=== PATIENT | female | born 1970 | race Caucasian/White ===

== ENCOUNTER 2016-07-05 08:10 | Emergency (ER) | payer OTHER ==
[2016-07-05] MEDS ORDERED: predniSONE TAB* 20 MG PO ONE (09:17)
[2016-07-05] MEDS ORDERED: Famotidine TAB* 20 MG PO ONE (09:18)
[2016-07-05] MEDS ORDERED: LoraTADine TAB(NF) 10 MG TAB (AUTOSUB to CETIRIZINE) PO ONE (09:18)
[2016-07-05 09:31] VITALS: BP 121/61
--- NOTE | 2016-07-05 10:05 | UC ---
Adrianna Gonzalez Michael, scribed for Emily Lerner MD on 07/05/16 at 0830 . Skin Complaint HPI - HPI Summary HPI Summary: 46 y/o female comes to [facility] presenting with swollen right lower lip that started this morning when she woke up. The pt reports that the swelling is radiating to her right lower jaw. She also states that the swelling is aggravated with talking. The pt denies chest tightness, throat tightening, wheezing, SOB, and dysphagia. The pt notes she took Ibuprofen for plantar fasciitis at 1600 one day ago. She also started Garcinia Cambogia BID 2 weeks ago. - History of Current Complaint Chief Complaint: UCSkin Stated Complaint: LIP SWELLING Hx Obtained From: Patient, Medical Records Hx Last Menstrual Period: 06/20/16 Onset/Duration: Sudden Onset, Lasting Hours, Still Present Skin Exposure Onset/Duration: Hours Ago Timing: Constant Onset Severity: Moderate Current Severity: Moderate Pain Intensity: 0 Pain Scale Used: 0-10 Numeric Location: Other - right lower lip Character: Swelling Aggravating: Other - talking Alleviating: Nothing Associated Signs & Symptoms: Positive: Negative - chest tightness. SOB.. Negative: Wheezing, Chest Pain, Hoarseness, Throat Tightening - no dysphagia - Allergy/Home Medications Allergies/Adverse Reactions: Allergies Allergy/AdvReac Type Severity Reaction Status Date / Time No Known Allergies Allergy Verified 07/05/16 08:23 Review of Systems Skin: Other - right lower lip swelling ENT: Negative - throat tightening. dysphagia. Respiratory: Negative - SOB. wheezing. Cardiovascular: Negative - CP All Other Systems Reviewed And Are Negative: Yes PMH/Surg Hx/FS Hx/Imm Hx Previously Healthy: No - plantar fasciitis - Surgical History Surgical History: None - Family History Known Family History: Positive: Cardiac Disease, Other - throat CA. CVA. Family History: pt denies a significant FHx - Social History Occupation: Employed Full-time Lives: With Family Alcohol Use: Occasionally Substance Use Type: None Smoking Status (MU): Never Smoked Tobacco Physical Exam Triage Information Reviewed: Yes Vital Signs: Initial Vital Signs Temp 98.5 F 07/05/16 08:14 Pulse 91 07/05/16 08:14 Resp 16 07/05/16 08:14 BP 137/66 07/05/16 08:14 Pulse Ox 100 07/05/16 08:14 Vital Signs Reviewed: Yes - Additional Comments Appearance: Well-appearing, no pain distress, Well-nourished Eyes: Conjunctiva clear ENT: No uvula edema. Pharynx is not inflamed. Right lower lip swollen to the point there are no lip creases. No mucosal ulceration. No anterior cervical adenopathy. Neck: Supple Respiratory: Lungs clear, Normal breath sounds, no respiratory distress Cardio: RRR, No murmur, pulses normal, brisk capillary refill Musculoskeletal: Strength Intact, ROM intact Neuro: Alert, muscle tone normal Psychological: Normal Skin: Normal No rash or hives. Course/Dx - Course Course Of Treatment: Discussed with patient the development of allergies and the possibility that she developed an allergy to Ibuprofen. Discussed anaphylaxis and indications for going to the ED if sxs worsen. Explained that at this time sxs are all localized - Differential Diagnoses - Skin Complaint Differential Diagnoses: Allergic Reaction, Anaphylaxis, Angioedema - Diagnoses Provider Diagnoses: acute lip swelling, localized allergic reaction Discharge - Discharge Plan Condition: Stable Disposition: HOME Prescriptions: Famotidine TAB* [Pepcid TAB*] 40 mg PO DAILY #8 tab predniSONE TAB* [Deltasone TAB*] 40 mg PO DAILY #8 tab Patient Education Materials: General Allergic Reaction (ED) Referrals: No Primary Care Phys,NOPCP [Primary Care Provider] - Additional Instructions: KEEP YOUR SCHEDULED APPOINTMENT WITH YOUR NEW PRIMARY CARE PROVIDER AT [facility]. START YOUR PRESCRIBED MEDICINES TOMORROW, WE GAVE YOUR FIRST DOSES TODAY AT 0930AM. START BENADRYL 50MG EVERY 6 HRS AROUND THE CLOCK FOR THE NEXT 48 HRS, AND THEN NEEDED FOR THE LIP SWELLING. DO NOT TAKE IBUPROFEN OR GARCINIA CAMBOGIA AGAIN YOU MAY BE ALLERGIC TO THEM. DISCUSS THIS WITH YOUR DOCTOR BEFORE YOU TAKE THEM AGAIN. GO TO THE EMERGENCY ROOM IF ANY NEW OR WORSENING SYMPTOMS. The documentation as recorded by the Adrianna gonzalez Michael accurately reflects the service I personally performed and the decisions made by , Emily Lerner MD.
== END 2016-07-05 09:36 | disposition home or self-care (01) ==
LOC: UCEAST 08:10
DX: T78.40XA Allergy, unspecified, initial encounter (principal); X58.XXXA Exposure to other specified factors, initial encounter; R22.0 Localized swelling, mass and lump, head
CPT/HCPCS: 99212; A9270-GY; G0463; J7512

== ENCOUNTER 2016-08-04 17:34 | Emergency (ER) | payer OTHER ==
[2016-08-04 18:30] LABS: Hematocrit 40 % (35-47); Hemoglobin 13.5 g/dl (12.0-16.0); Mean Corpuscular HGB Conc 34 g/dl (31-36); Mean Corpuscular Hemoglobin 33 pg (27-31); Mean Corpuscular Volume 96 fL (80-97); Mean Platelet Volume 9 um3 (7.4-10.4); Red Blood Count 4.14 10^6/ul (4.0-5.4); Red Cell Distribution Width 12 % (10.5-15); White Blood Count 6.7 10^3/ul (3.5-10.8)
[2016-08-04 18:42] LABS: Urine Bilirubin Negative (Negative); Urine Glucose Negative (Negative); Urine Nitrite Negative (Negative)
[2016-08-04 18:47] LABS: BUN/Creatinine Ratio 12.2 (8-20); C Reactive Protein 55.53 mg/L (< 5.00); Calcium 9.4 mg/dL (8.6-10.3); EGFR African American 79.3 (>60); EGFR Non-African American 61.7 (>60); Globulin 2.8 g/dL (2-4); Magnesium 1.7 mg/dL (1.9-2.7); Potassium 3.7 mmol/L (3.5-5.0); Total Bilirubin 0.6 mg/dL (0.2-1.0); Total Protein 6.8 g/dL (6.4-8.9)
--- NOTE | 2016-08-04 19:03 | ED ---
Abdominal Pain/Female - HPI Summary HPI Summary: Patient presents to the ED with recommendation of PCP d/t diffuse abdominal pain intermittently since yesterday. Denies N/V. Patient has been recently constipated over the past several months to which she takes supplements. If she dose not take the supplements, she tends to not have BM for 3 days. Past surgical hx includes appendectomy. She also has a known fibroid tumor, but unsure of location. She notes to some GB issues including intermittent RUQ pain radiating to shoulder x several months. This pain she states is different and diffuse. Denies fever, PAGAN, back pain, urinary symptoms. She states lately she has struggled with losing weight and is beginning to see specialists for answers. Nothing makes the pain better or worse. - History of Current Complaint Chief Complaint: EDAbdPain Stated Complaint: ABD PIFELICIA Time Seen by Provider: 08/04/16 17:42 Hx Obtained From: Patient Hx Last Menstrual Period: 06/20/16 ?: No Onset/Duration: Sudden Onset Timing: Minutes Severity Initially: Moderate Severity Currently: Moderate Pain Intensity: 3 Pain Scale Used: 0-10 Numeric Location: Diffuse Radiates: No Character: Cramping Aggravating Factor(s): Nothing Alleviating Factor(s): Nothing Associated Signs and Symptoms: Positive: Negative - Risk Factors Ectopic Risk Factor: Maternal Age ^ 30 Ovarian Torsion Risk Factor: Reproductive Age, Ovarian Cysts/Tumors - fibroid tumor Allergies/Adverse Reactions: Allergies Allergy/AdvReac Type Severity Reaction Status Date / Time No Known Allergies Allergy Verified 07/05/16 08:23 PMH/Surg Hx/FS Hx/Imm Hx Previously Healthy: Yes Infectious Disease History: No Infectious Disease History: Denies: Traveled Outside the [place] in Last 30 Days - Family History Known Family History: Positive: Cardiac Disease, Other - throat CA. CVA. Family History: pt denies a significant FHx - Social History Occupation: Employed Full-time Lives: With Family Alcohol Use: Occasionally Hx Substance Use: No Substance Use Type: Reports: None Hx Tobacco Use: No Smoking Status (MU): Never Smoked Tobacco Do You Chew or Dip Tobacco: No Have You Chewed or Dipped Tobacco in the LAST YEAR: No Review of Systems ENT: Negative Cardiovascular: Negative Respiratory: Negative Positive: Abdominal Pain, Other - constipation Positive: no symptoms reported, see HPI Musculoskeletal: Negative Skin: Negative Neurological: Negative All Other Systems Reviewed And Are Negative: Yes Physical Exam Triage Information Reviewed: Yes Vital Signs On Initial Exam: Initial Vitals Temp Pulse Resp BP Pulse Ox 98.0 F 77 16 134/66 100 08/04/16 17:37 08/04/16 17:37 08/04/16 17:37 08/04/16 17:37 08/04/16 17:37 Vital Signs Reviewed: Yes Appearance: Positive: Well-Appearing, No Pain Distress, Well-Nourished Skin: Positive: Warm, Skin Color Reflects Adequate Perfusion Head/Face: Positive: Normal Head/Face Inspection Eyes: Positive: EOMI, MARCO A ENT: Positive: Normal ENT inspection Neck: Positive: Supple, No Lymphadenopathy Respiratory/Lung Sounds: Positive: Clear to Auscultation, Breath Sounds Present Cardiovascular: Positive: Normal, RRR Abdomen Description: Positive: Other: - tender in all 4 quadrants, murphys sign positive. suprapubic tenderness. no mcburneys point Bowel Sounds: Positive: Present Musculoskeletal: Positive: Normal, Strength/ROM Intact Neurological: Positive: Sensory/Motor Intact, Alert, Oriented to Person Place, Time Psychiatric: Positive: Normal AVPU Assessment: Alert - [place] Coma Scale Coma Scale Total: 15 Diagnostics - Vital Signs Vital Signs Temp Pulse Resp BP Pulse Ox 08/04/16 17:37 98.0 F 77 16 134/66 100 - Laboratory Lab Results: Lab Results 08/04/16 08/04/16 08/04/16 Range/Units 18:20 18:20 18:20 WBC 6.7 (3.5-10.8) 10^3/ul RBC 4.14 (4.0-5.4) 10^6/ul Hgb 13.5 (12.0-16.0) g/dl Hct 40 (35-47) % MCV 96 (80-97) fL MCH 33 H (27-31) pg MCHC 34 (31-36) g/dl RDW 12 (10.5-15) % Plt Count 211 (150-450) 10^3/ul MPV 9 (7.4-10.4) um3 Neut % (Auto) 76.7 (38-83) % Lymph % (Auto) 15.4 L (25-47) % Andrews % (Auto) 6.6 (1-9) % Eos % (Auto) 1.0 (0-6) % Baso % (Auto) 0.3 (0-2) % Absolute Neuts (auto) 5.1 (1.5-7.7) 10^3/ul Absolute Lymphs (auto) 1.0 (1.0-4.8) 10^3/ul Absolute Monos (auto) 0.4 (0-0.8) 10^3/ul Absolute Eos (auto) 0.1 (0-0.6) 10^3/ul Absolute Basos (auto) 0 (0-0.2) 10^3/ul Absolute Nucleated RBC 0 10^3/ul Nucleated RBC % 0 Sodium 136 (133-145) mmol/L Potassium 3.7 (3.5-5.0) mmol/L Chloride 102 (101-111) mmol/L Carbon Dioxide 29 (22-32) mmol/L Anion Gap 5 (2-11) mmol/L BUN 12 (6-24) mg/dL Creatinine 0.98 H (0.51-0.95) mg/dL Est GFR ( Amer) 79.3 (>60) Est GFR (Non-Af Amer) 61.7 (>60) BUN/Creatinine Ratio 12.2 (8-20) Glucose 92 (70-100) mg/dL Calcium 9.4 (8.6-10.3) mg/dL Magnesium 1.7 L (1.9-2.7) mg/dL Total Bilirubin 0.60 (0.2-1.0) mg/dL AST 23 (13-39) U/L ALT 26 (7-52) U/L Alkaline Phosphatase 42 (34-104) U/L Total Creatine Kinase 54 (10-223) U/L C-Reactive Protein 55.53 H (< 5.00) mg/L Total Protein 6.8 (6.4-8.9) g/dL Albumin 4.0 (3.2-5.2) g/dL Globulin 2.8 (2-4) g/dL Albumin/Globulin Ratio 1.4 (1-3) Lipase 25 (11.0-82.0) U/L Beta HCG, Quant 1.83 mIU/mL Urine Color Straw Urine Appearance Clear Urine pH 6.0 (5-9) Ur Specific [place] 1.003 L (1.010-1.030) Urine Protein Negative (Negative) Urine Ketones Negative (Negative) Urine Blood Negative (Negative) Urine Nitrate Negative (Negative) Urine Bilirubin Negative (Negative) Urine Urobilinogen Negative (Negative) Ur Leukocyte Esterase Negative (Negative) Urine Glucose Negative (Negative) Result Diagrams: 08/04/16 18:20 08/04/16 18:20 Lab Statement: Any lab studies that have been ordered have been reviewed, and results considered in the medical decision making process. Abdominal Pain Fem Course/Dx - Course Course Of Treatment: Patient labs WNL except for CRP 55. CT abd/pelvis with contrast shows large fibroid. US transvaginal shows same. Discharged home with follow up with OB. - Diagnoses Differential Diagnosis: Positive: Bowel Obstruction, Constipation, Ovarian Cyst Provider Diagnoses: Fibroid Discharge - Discharge Plan Condition: Stable Disposition: HOME Patient Education Materials: Uterine Fibroids (ED) Referrals: Braulio Barriga MD [Primary Care Provider] - Zach Quick MD [Medical Doctor] - Additional Instructions: Follow up with Dr. Quick as soon as possible. You have been diagnosed with a leiomyoma on US and CT scan. If you develop worsening symptoms or fever, come back to ED.
[2016-08-04] MEDS ORDERED: Iohexol 300* (CONTRAST) 10 ML SDV IV ONE (20:05)
--- NOTE | 2016-08-04 20:54 | RAD ---
INDICATION: Diffuse abdominal pain. COMPARISON: Comparison is made with a prior CT of the abdomen and pelvis from January 04, 2010. TECHNIQUE: A CT scan of the abdomen and pelvis was performed with intravenous and oral contrast following intravenous injection of 103 ml of Omnipaque 300 nonionic contrast. Contiguous axial sections were obtained from the lung bases through the symphysis pubis. Images were reconstructed in the coronal and sagittal planes. FINDINGS: There is mild dependent bilateral lower lobe subsegmental atelectasis. No pleural effusion is present. The liver and spleen are normal in size. There are 2 fluid density lesions present within the liver one in the posterior segment of the right hepatic lobe measuring 2.2 cm in diameter and the other in the lateral segment of the left hepatic lobe measuring 2.0 cm in diameter. These would be most consistent with cysts and have increased in size from the prior study. No calcified gallstones or gallbladder wall thickening is seen. The pancreas appears to be within normal limits. The kidneys and adrenal glands are normal in size. No hydronephrosis is seen. No significant focal renal abnormality is seen. The aorta is normal in caliber and demonstrates homogeneous contrast opacification. No significant enlarged retroperitoneal lymph nodes are seen. The stomach, small and large bowel appear nondistended. There are surgical sutures present along the medial aspect of the cecum consistent with a prior appendectomy and the patient's history. There is no evidence for diverticulitis or colitis. The uterus is anteverted and moderately enlarged. There is a large soft tissue density mass arising from the fundus of the uterus measuring 7.3 x 8.2 x 7.4 cm in size. This is new from the prior exam and likely represents a large leiomyoma. No free intraperitoneal air or fluid is seen. There is a small involuting right follicular cyst measuring 1.4 x 1.0 cm in size. No significant focal osseous abnormality is seen. IMPRESSION: 1. THERE IS A LARGE MASS ARISING FROM THE FUNDUS OF THE UTERUS NEW FROM THE PRIOR EXAM MOST CONSISTENT WITH A LEIOMYOMA. RECOMMEND A FOLLOW-UP PELVIC ULTRASOUND FOR FURTHER EVALUATION. 2. SMALL INVOLUTING RIGHT FOLLICULAR CYST. 3. HEPATIC CYSTS.
--- NOTE | 2016-08-04 22:49 | RAD ---
Indication: Evaluate uterine mass. COMPARISON: Correlation is made with a prior CT of the abdomen of the same day. TECHNIQUE: Multiple real-time transabdominal images of the pelvis were obtained. FINDINGS: The uterus is enlarged and heterogeneous in density. The uterus measured 10.1 x 8.0 x 8.5 cm. The endometrial echo measured 1.2 cm in thickness. There is a large mass present within the fundus of the uterus extending toward the right side measuring 8.0 x 7.7 x 8.0 cm in size. There is vascular flow seen within the mass. This would be most consistent with a large leiomyoma. The right ovary measured 4.5 x 2.8 x 3.2 cm. The left ovary measured 3.3 x 2.0 x 2.1 cm. There is vascular flow within both ovaries. No free intraperitoneal fluid is seen. IMPRESSION: ENLARGED UTERUS WITH LARGE FUNDAL MASS MOST CONSISTENT WITH A LEIOMYOMA.
[2016-08-04 23:36] VITALS: BP 124/64
== END 2016-08-04 23:35 | disposition home or self-care (01) ==
LOC: ED 17:34
DX: N83.01 Follicular cyst of right ovary (principal); K76.89 Other specified diseases of liver; N85.2 Hypertrophy of uterus; R10.84 Generalized abdominal pain; K59.00 Constipation, unspecified
CPT/HCPCS: 36415; 74177; 76856; 80053; 81003; 82550; 83690; 83735; 84702; 85025; 86140; 99282; Q9967

== ENCOUNTER 2016-12-02 07:19 | Day surgery (SDC) | payer OTHER ==
--- NOTE | 2016-10-24 10:29 | HP ---
PREOPERATIVE HISTORY AND PHYSICAL: DATE OF ADMISSION/SURGERY: 11/11/16 [facility] DATE OF OFFICE VISIT: 10/15/16 ATTENDING SURGEON: Zabrina Bernal MD. (DICTATED BY SYLVESTER OWENS) PROCEDURE: Right wrist distal ulna resection, extensor tenolysis, extensor tendon transfer. CHIEF COMPLAINT: Inability to extend right ring finger. HISTORY OF PRESENT ILLNESS: This is a 46-year-old female who has had inability to extend her right ring finger for the past month or so. She reports that she has been working in the kitchen and she went to grab something and felt a pop in her hand and then she could not straighten her finger. She has a longtime history of juvenile rheumatoid arthritis and has had marked loss of motion in her right wrist for many, many years. She has always been able to make a fist well. Since this episode in the kitchen, she has had mild pain and inability to extend the ring finger. 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 She has had difficulty doing both of these activities because of her finger. After evaluation and consult with Dr. Bernal, the patient has agreed to proceed with surgical intervention to correct this problem. PAST MEDICAL HISTORY: 1. History of juvenile rheumatoid arthritis. 2. History of gestational diabetes. PAST SURGICAL HISTORY: 1. Appendectomy in 2009. 2. Left knee biopsy. CURRENT MEDICATIONS: 1. Ibuprofen p.r.n. 2. Probiotic daily. 3. Daily vitamin. ALLERGIES: No known drug allergies. FAMILY MEDICAL HISTORY: Significant for heart disease and stroke. SOCIAL HISTORY: The patient is employed at [employer]. She denies tobacco use and recreational drug use. She does admit to alcohol use on social basis. REVIEW OF SYSTEMS: General: Negative for fevers, chills or night sweats. No known anesthesia problems. HEENT: Negative for headache, lightheadedness or syncopal episodes. Integumentary: Negative for abrasions, lesions or open wounds. Cardiothoracic: Negative for hypertension, chest pain, palpitations or edema. Pulmonary: Negative for shortness of breath with exertion, chronic cough , COPD. GI: Negative for nausea, vomiting, diarrhea, constipation or GERD. : Negative for nocturia, urinary frequency, urgency, history of UTIs or kidney problems. Musculoskeletal: Positive for current complaint. Negative for chronic or intermittent back pain or history of fractures. Neurological: Negative for paresthesias, numbness, history of seizure, stroke or epilepsy. Endocrine: Negative for diabetes or thyroid issues. Hematologic: Negative for easy bruising, anemia, excessive bleeding or history of DVT. Infectious Disease : Negative for history of MRSA, hepatitis C or HIV. PHYSICAL EXAMINATION GENERAL: Well-developed, well nourished 46-year-old female, in no acute distress. VITAL SIGNS: Height 5 feet 3-3/4 inches, weight 170 pounds, pulse rate 64, blood pressure 114/74. HEENT: Normocephalic, atraumatic. Pupils are equal, round, and reactive to light and accommodation. No palpable lymph nodes. Throat is clear. PULMONARY: Lungs are clear to auscultation bilaterally. No wheezes, rales, or rhonchi. CARDIOVASCULAR: Regular rate and rhythm. S1 and S2. No murmurs, rubs, or gallops. ABDOMEN: Positive bowel sounds, soft, nontender. NEUROLOGICAL: Alert and oriented x3. Cranial nerves II through XII are intact. Sensation is intact to light touch. PERIPHERAL/VASCULAR: 2+ radial and ulnar pulses. Negative Kevin test. MUSCULOSKELETAL: On exam of her right hand and wrist, she has a very little range of motion OF the wrist with flexion and extension and an arch of only about 30 degrees. This is markedly less than her left wrist, which has full flexion and extension and pronation and supination. The right wrist has some prominence of her distal ulna. She could not actively extend her ring finger nor can she hold it in extension when it is placed in extension. She can make a full fist. She does not have any ulnar deviation of her fingers. Skin is intact. Neurovascular function is intact. IMAGING STUDIES: X-rays, AP, lateral, and oblique of the right wrist and hand show no degenerative changes in her finger joints, but marked degenerative change in her wrist joint with actual near fusion of the wrist joint. IMPRESSION: Extensor tendon rupture of the right ring finger in conjunction with rheumatoid arthritis. PLAN: The patient is scheduled to undergo a right wrist distal ulnar resection , extensor tenolysis, and extensor tendon transfer on 11/11/2016, with Dr. Bernal. She will return to the office in 10 to 14 days postop for followup and suture removal. A prescription for [place] was e-scribed to the patient's pharmacy for postoperative pain management. SYLVESTER OWENS [id number]/[facility] #: [id number] TRISTIAN
[~2016-12-02 07:19] MED LIST: Buffered Lidocaine 0.9% SYRIN* 5 ML/SYR SYRINGE INTRADERM ONE
[2016-12-02] MEDS ORDERED: ceFAZolin 2 GM PREMIX(*) 2 GM/50 ML BAG IVPB ONE (07:39)
[2016-12-02] MEDS ORDERED: Lidocaine 1% INJ* 10 MG/ML 30 ML SDV ONE (07:55)
[2016-12-02] MEDS ORDERED: fentaNYL* 50 MCG/ML 2 ML VIAL (100 MCG VIAL) ONE (08:28)
[2016-12-02] MEDS ORDERED: Midazolam* 1 MG/ML 2 ML VIAL (2 MG) ONE (08:28)
[2016-12-02] MEDS ORDERED: Famotidine IV* 10 MG/ML 2 ML (20 mg) ONE (08:39)
[2016-12-02] MEDS ORDERED: HYDROcodone/ACETAMIN 5-325 MG* 1 TAB PO PRN (08:41)
[2016-12-02] MEDS ORDERED: fentaNYL* 50 MCG/ML 2 ML VIAL (100 MCG VIAL) IV PRN (08:41)
[2016-12-02] MEDS ORDERED: DiMENhydriNATE IV* 50 MG/ML VIAL IV PUSH PRN (08:41)
[2016-12-02] MEDS ORDERED: Acetaminophen TAB* 325 MG PO PRN (08:41)
[2016-12-02] MEDS ORDERED: Propofol* 10 MG/ML 20 ML BTL IV PUSH ONE (08:47)
[2016-12-02] MEDS ORDERED: Ketorolac INJ* 30 MG/ML 1 ML VIAL ONE (08:47)
[2016-12-02] MEDS ORDERED: Lidocaine 2% PF * 5 ML VIAL ONE (08:47)
[2016-12-02] MEDS ORDERED: Dexamethasone IV* 4 MG/ML 1 ML (4 MG) ONE ×2 (08:47→09:16)
[2016-12-02] MEDS ORDERED: Succinylcholine* 20 MG/ML 10 ML VIAL ONE (09:06)
[2016-12-02] MEDS ORDERED: HYDROmorphone* 1 MG/ML 1 ML SYR ONE (09:49)
[2016-12-02] MEDS ORDERED: Ondansetron INJ* 2 MG/ML VIAL ONE (10:25)
[2016-12-02] MEDS: Ondansetron INJ* 2 MG/ML VIAL IV PRN ×2 (10:27→10:48)
[2016-12-02] MEDS ORDERED: DiMENhydriNATE IV* 50 MG/ML VIAL ONE (10:38)
[2016-12-02 11:12] VITALS: BP 120/56
--- NOTE | 2016-12-03 03:20 | OP ---
DATE OF OPERATION: 12/02/16 [facility] DATE OF : 74 SURGEON: Zabrina Bernal MD GEAR TESTER: SYLVESTER Maldonado ANESTHESIOLOGIST: Dr. Blevins ANESTHESIA: General. PRE-OP DIAGNOSIS: Extensor tendon rupture of the right ring finger with juvenile rheumatoid arthritis causing distal ulnar prominence. POST-OP DIAGNOSIS: Extensor tendon rupture of the right ring finger with juvenile rheumatoid arthritis causing distal ulnar prominence. OPERATIVE PROCEDURE: Right distal ulnar resection, tenosynovectomy of the right wrist extensors and extensor tendon transfer from the extensor digiti minimi to the extensor ring finger. ESTIMATED BLOOD LOSS: Zero. TOURNIQUET TIME: About 40 minutes. INDICATIONS: Mari is a 46-year-old female who was seen in my office about 6 weeks ago with inability to extend her right ring finger. There was no injury that she recalls. She has a history of juvenile rheumatoid arthritis. She has a nearly fused wrist with quite a prominence of her distal ulna. X-ray shows the wrist to be almost fused and abundant arthritis at the distal radioulnar joint with significant prominence of her distal ulna. Clinically, she cannot extend her ring finger but all of her other fingers extend with good strength. She presents for distal ulnar resection and extensor tenosynovectomy and transfer. DESCRIPTION OF PROCEDURE: The patient was brought to the operating room, was given a general anesthetic, and placed in the supine position on the operating table with the tourniquet around her right upper arm. The skin of her right upper extremity was prepped and draped in the usual sterile fashion. A longitudinal incision was made in the central aspect of the wrist and we dissected sharply down to the extensor retinaculum. The retinaculum was incised longitudinally in the fourth extensor compartment and extensor tenosynovectomy was performed. The sixth extensor compartment was also opened. The extensor digiti minimi and the extensor digitorum to the small finger were both intact. The extensor tendon to the middle finger and index finger were intact. There was a significant prominence of the distal ulna. The distal radial and ulnar joint capsule was incised longitudinally and subperiosteally dissected off of the distal ulna. The distal ulnar was removed with a sagittal saw while the underlying structures were protected by the neurosurgical nurse practitioner, Allie Nunez, with Hohmann retractors. The ulnar head was removed and also the surrounding osteophytes were removed with a rongeur. So, there were no more prominent bony areas. Next, we transected the extensor digiti minimi at the MP joint capsule and transferred it to the extensor digitorum of the ring finger trying to maintain the appropriate tension. The patient has very minimal wrist motion, so it was difficult to check with tenodesis, but the finger had good placement in comparison to the other fingers. With a Pulvertaft weave, the tendons were secured to each other. The wound was irrigated. The extensor retinaculum was repaired over the fourth compartment extensor tendons in a little bit lengthened fashion and then the skin edges were reapproximated with 4-0 nylon suture. The wound was dressed with Xeroform, 4x4, Webril, and a volar splint with these fingers in full extension. The patient tolerated the procedure well, was brought to the recovery room in good condition. [id number]/[facility] #: [id number] TRISTIAN
== END 2016-12-02 11:03 | disposition home or self-care (01) ==
LOC: OREAST 07:19
PROVIDERS: ATTEND Orthopaedic Surgery
DX: M66.241 Spontaneous rupture of extensor tendons, right hand (principal); M08.041 Unspecified juvenile rheumatoid arthritis, right hand
CPT/HCPCS: 81025; J0330; J0690; J1100; J1170; J1240; J1885; J2001; J2250; J2405; J2704; J3010